=== PATIENT | male | born 1990 | race African-American/Black ===

== ENCOUNTER 2017-09-26 17:14 | Emergency (ER) | payer BC ==
[~2017-09-26] VITALS: Ht 195.6 cm; Wt 123.5 kg
[2017-09-26 17:21] VITALS: BP 176/83; PULSE 91; RESP 16; TEMP 99; O2SAT 96
[2017-09-26] MEDS ORDERED: CLIN150C14 PO (18:54)
[2017-09-26] MEDS ORDERED: PRED20 PO (18:54)
[2017-09-26] MEDS ORDERED: CLINDAMYCIN PHOS 600 MG/4 ML VIAL IM ONE (19:00)
[2017-09-26] MEDS ORDERED: DEXAMETHASONE SOD PHOS 20 MG/5 ML VIAL IM ONE (19:00)
--- NOTE | 2017-09-26 19:31 | PD ---
HPI Chief Complaint: ENT Complaint Time Seen by Provider: 18:12 Travel History International Travel<30 days: No Contact w/Intl Traveler<30days: No Traveled to known affect area: No History of Present Illness HPI 26-year-old male that presents to the ED for evaluation of sore throat. Patient has had this for about one day. Per patient he noticed that he has exudates on one of his tonsils and most of the pain is on the left side. Denies any shortness of breath or chest pain. States having some pain with swallowing but able to do so. Denies any numbness, tingling, weakness. No fevers chills or sweats. No sick contacts. No allergies to medication. Hasn' t taken anything for this. No other medical issues at this time. Per patient pain is 6 out of 10 with swallowing. PFSH Past Medical History Medical History: Denies Significant Hx Diminished Hearing: No Tetanus Vaccination: Unknown Past Surgical History Surgical History: No Previous Surgery Social History Alcohol Use: Yes (SOC) Tobacco Use: No Substance Use: No Allergies-Medications (Allergen,Severity, Reaction): Coded Allergies: No Known Allergies (Verified Allergy, Unknown, 09/26/17) Reported Meds & Prescriptions Reported Meds & Active Scripts Active Prednisone 20 Mg Tab 20 Mg PO BID 5 Days Clindamycin (Clindamycin HCl) 150 Mg Cap 300 Mg PO Q6H 10 Days Review of Systems Except as stated in HPI: all other systems reviewed are Neg Physical Exam Narrative GENERAL: Well-nourished, well-developed patient in no apparent distress. SKIN: Warm and dry. HEAD: Atraumatic. Normocephalic. EYES: Pupils equal and round reactive to light and accommodation. No scleral icterus. No injection or drainage. ENT: No nasal bleeding or discharge. Mucous membranes pink and moist. TMs are clear with no sign of infection or perforation. No mastoid tenderness. Ear canals are intact bilaterally. Nostril mucosa is red and moist with clear mucus noted. No sinus tenderness to palpation noted. Tonsils are erythematous and swollen but more noticeable on the left. Patient has exudates, lymphadenopathy to the left side. No ulvua Deviation. Tongue is midline. NECK: Trachea midline. No JVD. No meningeal signs noted CARDIOVASCULAR: Regular rate and rhythm. RESPIRATORY: No accessory muscle use. Clear to auscultation. Breath sounds equal bilaterally. GASTROINTESTINAL: Abdomen soft, non-tender, nondistended. Hepatic and splenic margins not palpable. MUSCULOSKELETAL: Extremities without clubbing, cyanosis, or edema. No obvious deformities. NEUROLOGICAL: Awake and alert. No obvious cranial nerve deficits. Motor grossly within normal limits. Five out of 5 muscle strength in the arms and legs. Normal speech. PSYCHIATRIC: Appropriate mood and affect; insight and judgment normal. Data Data Last Documented VS Vital Signs Date Time Temp Pulse Resp B/P (MAP) Pulse Ox O2 Delivery O2 Flow Rate FiO2 09/26/17 17:21 99.0 91 16 176/83 (114) 96 Orders Orders Group A Rapid Strep Screen (09/26/17 17:53) Strep Culture (Group A) (09/26/17 18:00) Clindamycin Inj (Cleocin Inj) (09/26/17 19:00) Dexamethasone Inj (Decadron Inj) (09/26/17 19:00) Ed Discharge Order (09/26/17 19:26) MDM Medical Decision Making Medical Screen Exam Complete: Yes Emergency Medical Condition: Yes Medical Record Reviewed: Yes Differential Diagnosis Tonsillar abscess versus tonsillitis versus strep throat versus pharyngitis Narrative Course 26-year-old male that presents to the ED for evaluation of sore throat. Patient was properly examined and was found to have signs and symptoms concerning for possible peritonsillar abscess. Maybe early. Patient does have 1 tonsils that is larger than the other one and does appear to have some exudates. There for concern for infection versus possible early peritonsillar abscess. Airway is patent. There is no sign of airway compromise. Strep test was negative. I had my attending Dr Mobley evaluate the patient and agrees with plan. Patient was given dose of clindamycin here IM as well as dexamethasone and prescriptions for the same. Told to follow with PCP. Recheck in 48 hours if no improvement at all. See ED worsening symptoms. Follow with ENT. Diagnosis Primary Impression: Peritonsillar abscess Patient Instructions: General Instructions Additional Instructions: Motrin and Tylenol for pain and fever. Drink plenty of fluids. Follow-up with PCP. See ED for worsening symptoms. Med/Other Pt SpecificInfo: Prescription(s) given Scripts Prednisone (Prednisone) 20 Mg Tab 20 MG PO BID for 5 Days, #10 TAB 0 Refills Prov: Naheed Monreal MD 09/26/17 Clindamycin (Clindamycin) 150 Mg Cap 300 MG PO Q6H for Infection for 10 Days, #80 CAP 0 Refills Prov: Naheed Monreal MD 09/26/17 Disposition: 01 DISCHARGE HOME Condition: Stable Kamran Clayton Sep 26, 2017 19:31
== END 2017-09-26 19:44 | disposition home or self-care (01) ==
LOC: PHED 17:14 → PHEFT 19:44
DX: J36 Peritonsillar abscess (principal)
CPT/HCPCS: 87081; 87880; 96372; 99283; J1100